=== PATIENT | male | born 1990 | race Caucasian/White ===

== ENCOUNTER 2019-05-11 00:50 | Emergency (ER) | payer SELFPAY ==
[~2019-05-11] VITALS: Ht 172.7 cm; Wt 69.0 kg
[2019-05-11 01:00] VITALS: BP 131/81
== END 2019-05-11 05:34 | disposition left against medical advice (07) ==
LOC: ER 00:50
DX: Z53.21 Procedure and treatment not carried out due to patient leaving prior to being seen by health care provider (principal)